=== PATIENT | female | born 1970 | race Asian ===

== ENCOUNTER 2022-11-02 06:52 | Day surgery (SDC) | payer OTHER ==
[~2022-11-02] VITALS: Ht 152.4 cm; Wt 57.2 kg
[2022-11-02] MEDS ORDERED: fentaNYL citrate 0.05 MG/ML VIAL ONE (08:53)
[2022-11-02] MEDS ORDERED: LIDOCAINE 2% 100 MG/5 ML UJET TP ONE (08:53)
[2022-11-02] MEDS ORDERED: fentaNYL citrate 0.05 MG/ML VIAL IVP ONE (09:55)
== END 2022-11-02 10:20 | disposition home or self-care (01) ==
LOC: MDS 06:52 → MMU 06:53 → MDS 10:20
PROVIDERS: ATTEND Internal Medicine Gastroenterology
DX: Z12.11 Encounter for screening for malignant neoplasm of colon (principal); K63.5 Polyp of colon; E78.00 Pure hypercholesterolemia, unspecified; Z79.899 Other long term (current) drug therapy
CPT/HCPCS: 45385; J3010